=== PATIENT | male | born 1950 | race African-American/Black ===

== ENCOUNTER 2017-12-19 13:43 | Emergency (ER) | payer BC, OTHER ==
[~2017-12-19] VITALS: Ht 182.9 cm; Wt 107.0 kg
--- NOTE | ~2017-12-19 | EKG ---
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
[2017-12-19 15:22] LABS: ABSOLUTE NEUTROPHILS 4.4 thou/uL (1.4-8.2); BASOPHILS 0.8 % (0.0-2.0); EOSINOPHILS 2.1 % (0.0-3.0); HEMOGLOBIN 12.7 gm/dL (14.0-18.0); LYMPHOCYTES 23.8 % (24.0-44.0); MCHC 33.4 g/dL (28.0-37.0); MCV 83.9 fL (80.0-100.0); MONOCYTES 8.9 % (1.0-8.0); PLATELET COUNT 140 thou/uL (150-400); POLYS 64.4 % (36.0-66.0); RBC 4.53 mil/uL (4.50-6.00); RDW 12.7 % (10.5-14.5); WBC 6.9 thou/uL (4.0-11.0)
[2017-12-19 15:25] LABS: ANION GAP 5 mmol/L (7-16); BUN 15 mg/dL (7-18); CALCIUM 9.6 mg/dL (8.5-10.1); CHLORIDE 102 mmol/L (98-107); CO2 32 mmol/L (21-32); CREATININE 1.5 mg/dL (0.7-1.3); GLUCOSE 109 mg/dL (74-106); POTASSIUM 3.8 mmol/L (3.5-5.1); SODIUM 139 mmol/L (136-145)
[2017-12-19 15:33] LABS: TROPONIN-I <0.06 ng/mL (<0.06)
[2017-12-19] MEDS ORDERED: DOXAZOSIN MESYLA8 MG PO (16:27)
[2017-12-19] MEDS ORDERED: COZAAR 25 MG TA25 M1 PO (16:27)
[2017-12-19] MEDS ORDERED: HYDROCODONE-ACE15 ML PO (16:28)
[2017-12-19 19:20] VITALS: BP 159/113
== END 2017-12-19 19:21 | disposition home or self-care (01) ==
LOC: ER 13:43
PROVIDERS: Emergency Medicine
DX: I10 Essential (primary) hypertension (principal); R07.89 Other chest pain; I48.91 Unspecified atrial fibrillation; Z88.0 Allergy status to penicillin

== ENCOUNTER 2018-01-09 21:08 | Inpatient (IN) | payer BC, OTHER ==
[~2018-01-09] VITALS: Ht 236 cm; Wt 107.0 kg
--- NOTE | ~2018-01-09 | HC ---
[facility] [place] [address] CONSULTATION Name: KIEL LOPEZ Room #: 205-[facility] IN M.R.#: [id number] Admission: 01/10/18 Attend Phys: Giovany Nowak MD Discharge: Date of : 50 Report #: [id number] THIS REPORT FOR: //name// CC: Giovany Smith DATE OF SERVICE: 01/10/2018 INDICATION: Chest pains. HISTORY OF PRESENT ILLNESS: This is a 67-year-old gentleman presenting with an episode of chest pain. Last evening, he developed substernal chest pains, nonradiating. He had just eaten dinner earlier. He felt somewhat dizzy and checked his blood pressure and found it to be elevated. He denies any shortness of breath or diaphoresis. He came to the ER for an evaluation. His symptoms resolved after being treated with sublingual nitroglycerin. He was also noted to be hypertensive and he was admitted for further evaluation. He denies any history of fever, cough, PND or orthopnea. PAST MEDICAL HISTORY: History of hypertension, hemophilia A, SVT followed by Dr. Smith and Dr. Bob over at [facility] ?history of AFib. ALLERGIES: TO PENICILLIN. MEDICATIONS AT HOME: Include losartan 100 mg daily, doxazosin 12 mg and hydrocodone. SOCIAL HISTORY: Denies tobacco use. FAMILY HISTORY: Negative for premature CAD. REVIEW OF SYSTEMS: A full 10-point review of systems is performed. Only the pertinent positives and negatives are described in the HPI. PHYSICAL EXAMINATION: VITAL SIGNS: Blood pressure is 143/89, heart rate is 70 beats per minute. GENERAL APPEARANCE: Well-developed, well-nourished male in no acute respiratory distress. HEENT: Normocephalic. Sclerae are anicteric. ENT: Oral mucosa moist. NECK: Supple. LUNGS: Clear to auscultation. CARDIAC: Regular rate and rhythm, S1, S2 positive. ABDOMEN: Soft, nontender. EXTREMITIES: No joint deformities. No edema. NEUROLOGIC: Alert and oriented x 3 [facility] [address] [place] [address] CONSULTATION Name: KIEL LOPEZ Room #: 205-[facility] IN M.R.#: [id number] Admission: 01/10/18 Attend Phys: Giovany Nowak MD Discharge: Date of : 50 Report #: [id number] ECG reveals sinus rhythm, no acute ST segment changes. LABORATORY VALUES: Troponin is negative x 2. ASSESSMENT AND PLAN: 1. Chest pain syndrome, the differential diagnosis includes gastroesophageal reflux disease, ischemia, musculoskeletal. He was in the ER 2 weeks ago with similar complaints. He has not had a recent stress test. The plan is to proceed with a nuclear stress test. Continue with blood pressure management. 2. Hypertensive urgency, the blood pressure is improved. Continue with his medications. May need the addition of an additional medication. 3. Hemophilia A, stable. The patient reports that it is only a problem with deep wounds. Check hemoglobin 4. History of supraventricular tachycardia, continue with telemetry. <ELECTRONICALLY SIGNED> By: Shane Moreno MD 01/11/18 0812 1026 1522 Shane Moreno MD /nt
--- NOTE | ~2018-01-09 | 2DMMODE ---
[facility] [address] [place] [address] 2 D/M-MODE ECHOCARDIOGRAM Name: KIEL LOPEZ Room #: 205-[facility] IN ..#: [id number] Admission: 01/10/18 Attend Phys: Giovany Nowak MD Discharge: Date of : 50 Date of Service: 01/10/18 1010 Report #: [id number] THIS REPORT FOR: //name// APPROVED REPORT Study performed: 01/10/2018 08:50:42 EXAM: Comprehensive 2D, Doppler, and color-flow Echocardiogram Patient Location: Bedside Room #: 205 Status: routine BSA: 2.29 HR: 76 bpm BP: 143/89 mmHg Other Information Study Quality: Adequate Indications Chest Pressure Hypertension/HDD Hx afib 2D Dimensions RVDd: 46.22 mm IVSd: 13.27 (7-11mm) LVOT Diam: 20.44 (18-24mm) LVDd: 43.42 mm PWd: 13.48 (7-11mm) Ascending Ao: 27.03 (22-36mm) LVDs: 26.75 (25-40mm) Aortic Root: 27.35 mm IVC: 24.00 mm Volumes Left Atrial Volume (Systole) Single Plane 4CH: 67.69 mL Single Plane 2CH: 46.17 mL LA ESV Index: 29.00 mL/m2 Aortic Valve AoV Peak Rambo.: 1.26 m/s AO Peak Gr.: 6.39 mmHg LVOT Max P.71 mmHg LVOT Max V: 0.96 m/s HEATHER Vmax: 2.50 cm2 Mitral Valve E/A Ratio: 1.1 MV Decel. Time: 167.31 ms [facility] [place] [address] 2 D/M-MODE ECHOCARDIOGRAM Name: JOHNKIEL Andrew Room #: [address] [place] [address] IN [facility].#: [id number] Admission: 01/10/18 Attend Phys: Giovany Nowak MD Discharge: Date of : 50 Date of Service: 01/10/18 1010 Report #: [id number] E Max Rambo.: 0.72 m/s MV A Rambo.: 0.67 m/s MV PHT: 48.52 ms IVRT: 89.97 ms Pulmonary Valve PV Peak Rambo.: 1.22 m/s PV Peak Gr.: 5.95 mmHg Pulmonary Vein P Vein S: 0.38 m/s P Vein A: 0.23 m/s P Vein D: 0.27 m/s P Vein A Dur.: 96.9 msec P Vein S/D Ratio: 1.41 Tricuspid Valve TR Peak Rambo.: 2.43 m/s RAP Estimate: 10.00 mmHg TR Peak Gr.: 23.58 mmHg PA Pressure: 34.00 mmHg Left Ventricle The left ventricle is normal size. Mild concentric left ventricular hypertrophy. The left ventricular systolic function is normal. The left ventricular ejection fraction is within the normal range. LVEF is 60-65%. Transmitral Doppler flow pattern suggests pseudonormalization. Right Ventricle The right ventricle is normal size. The right ventricular systolic function is normal. Atria The left atrium size is normal. The right atrium size is normal. Aortic Valve The aortic valve is normal in structure. No aortic regurgitation is present. There is no aortic valvular stenosis. Mitral Valve The mitral valve is normal in structure. Trace mitral regurgitation. No evidence of mitral valve stenosis. Tricuspid Valve The tricuspid valve is normal in structure. Mild tricuspid regurgitation. PAP is estimated at 34 mmHg. Pulmonic Valve [place] [id number] 2 D/M-MODE ECHOCARDIOGRAM Name: JOHNKIEL Andrew Room #: 205-P [facility] IN M.R.#: [id number] Admission: 01/10/18 Attend Phys: Giovany Nowak MD Discharge: Date of : 50 Date of Service: 01/10/18 1010 Report #: [id number] The pulmonary valve is normal in structure. Mild pulmonic regurgitation. Great Vessels The aortic root is normal in size. IVC is dilated and collapses >50% with inspiration. Pericardium There is no pericardial effusion. <Conclusion> The left ventricle is normal size. Mild concentric left ventricular hypertrophy. The left ventricular systolic function is normal. Transmitral Doppler flow pattern suggests pseudonormalization. The right ventricle is normal size. The left atrium size is normal. The aortic valve is normal in structure. Trace mitral regurgitation. Mild tricuspid regurgitation. PAP is estimated at 34 mmHg. <ELECTRONICALLY SIGNED> By: Shane Moreno MD 01/10/18 1010 1010 1010 Shane Moreno MD /INF
--- NOTE | ~2018-01-09 | EKG ---
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
[~2018-01-09 21:08] MED LIST: COZAAR 25 MG TA25 M1 PO; DOXAZOSIN MESYLA8 MG PO; HYDROCODONE-ACE15 ML PO
[2018-01-09 21:09] VITALS: BP 202/113
[2018-01-09 21:53] LABS: ABSOLUTE NEUTROPHILS 3.2 thou/uL (1.4-8.2); BASOPHILS 1.3 % (0.0-2.0); EOSINOPHILS 2.4 % (0.0-3.0); HEMATOCRIT 34.2 % (42.0-52.0); HEMOGLOBIN 11.7 gm/dL (14.0-18.0); LYMPHOCYTES 34.6 % (24.0-44.0); MCH 28.3 pg (26.0-34.0); MCHC 34.2 g/dL (28.0-37.0); MCV 82.7 fL (80.0-100.0); MONOCYTES 8.1 % (1.0-8.0); PLATELET COUNT 127 thou/uL (150-400); POLYS 53.6 % (36.0-66.0); RBC 4.14 mil/uL (4.50-6.00); RDW 13.2 % (10.5-14.5)
[2018-01-09 21:59] LABS: ANION GAP 8 mmol/L (7-16); BUN 16 mg/dL (7-18); CALCIUM 8.5 mg/dL (8.5-10.1); CHLORIDE 104 mmol/L (98-107); CO2 30 mmol/L (21-32); CREATININE 1.4 mg/dL (0.7-1.3); GLUCOSE 123 mg/dL (74-106); POTASSIUM 3.7 mmol/L (3.5-5.1); SODIUM 142 mmol/L (136-145)
[2018-01-09 22:07] LABS: TROPONIN-I <0.06 ng/mL (<0.06)
[2018-01-10] VITALS (14 sets, daily range): BP systolic 138–169; BP diastolic 70–107
[2018-01-10] MEDS ORDERED: NORVASC5 MG PO (00:14)
[2018-01-10] MEDS ORDERED: COZAAR 25 MG TA25 M1 PO (02:16)
[2018-01-10 03:46] LABS: CHOLESTEROL 133 mg/dL (<200); HDL CHOLESTEROL 50 mg/dL (>40); LDL CHOLESTEROL 66 mg/dL (<100); TC:HDL 2.7 Ratio (Not establshd); TRIGLYCERIDE 86 mg/dL (<150); VLDL 17 mg/dL (<40)
[2018-01-11 02:35] LABS: CALCIUM 8.7 mg/dL (8.5-10.1); CREATININE 1.3 mg/dL (0.7-1.3); POTASSIUM 3.9 mmol/L (3.5-5.1)
[2018-01-11 04:00] VITALS: BP 166/80
[2018-01-11 08:10] VITALS: BP 145/97
[2018-01-11 11:00] VITALS: BP 117/68
[2018-01-11 14:36] VITALS: BP 121/65
[2018-01-11 19:21] VITALS: BP 128/81
[2018-01-12 03:53] VITALS: BP 142/95
[2018-01-12 04:28] LABS: CALCIUM 8.7 mg/dL (8.5-10.1); CREATININE 1.6 mg/dL (0.7-1.3); MAGNESIUM 1.9 mg/dL (1.8-2.4); POTASSIUM 4.4 mmol/L (3.5-5.1)
[2018-01-12 07:02] VITALS: BP 155/104
[2018-01-12 09:15] VITALS: BP 160/104
[2018-01-12 10:52] LABS: FOLIC ACID 19.3 ng/mL (8.6-58.9)
[2018-01-12 12:09] VITALS: BP 122/78; BP 124/80; BP 144/87
[2018-01-12 15:36] VITALS: BP 135/63
[2018-01-12 20:03] VITALS: BP 121/62
[2018-01-12 23:07] LABS: GLYCOHEMOGLOBIN (HGB A1C) 4.9 % (4.8-5.6)
[2018-01-13 04:03] LABS: ABSOLUTE NEUTROPHILS 3.9 thou/uL (1.4-8.2); EOSINOPHILS 2.1 % (0.0-3.0); HEMATOCRIT 34.5 % (42.0-52.0); HEMOGLOBIN 11.6 gm/dL (14.0-18.0); LYMPHOCYTES 27.7 % (24.0-44.0); MCH 28.2 pg (26.0-34.0); MCHC 33.5 g/dL (28.0-37.0); PLATELET COUNT 123 thou/uL (150-400); POLYS 59.2 % (36.0-66.0); RBC 4.11 mil/uL (4.50-6.00); RDW 13.3 % (10.5-14.5); WBC 6.7 thou/uL (4.0-11.0)
[2018-01-13 04:06] LABS: CALCIUM 8.5 mg/dL (8.5-10.1); CREATININE 1.5 mg/dL (0.7-1.3)
[2018-01-13 04:41] VITALS: BP 151/95
[2018-01-13 08:20] VITALS: BP 158/95
[2018-01-13] MEDS ORDERED: CARVEDILOL12.5 MG PO (11:29)
[2018-01-13] MEDS ORDERED: PAXIL 20 MG TAB20 M1 PO (11:29)
[2018-01-13 14:47] VITALS: BP 160/91
[2018-01-13 15:01] VITALS: BP 160/91
== END 2018-01-13 16:10 | disposition home health service (06) | DRG 304 ==
LOC: ER 21:08 → 2N 01-10 00:41 → EROBS 01-10 00:41 → 2N 01-10 01:23
PROVIDERS: Emergency Medicine; Hospitalist; Internal Medicine Cardiovascular Disease; Nurse Practitioner Acute Care
DX: I16.0 Hypertensive urgency (principal); D66 Hereditary factor VIII deficiency; R07.89 Other chest pain; I48.91 Unspecified atrial fibrillation; F41.1 Generalized anxiety disorder; I10 Essential (primary) hypertension; Z82.49 Family history of ischemic heart disease and other diseases of the circulatory system; Z98.41 Cataract extraction status, right eye; Z98.42 Cataract extraction status, left eye; Z88.0 Allergy status to penicillin; Z88.8 Allergy status to other drugs, medicaments and biological substances
CPT/HCPCS: 10081

== ENCOUNTER 2019-07-04 06:13 | Emergency (ER) | payer BC, OTHER ==
[~2019-07-04] VITALS: Ht 182.9 cm; Wt 105.2 kg
[~2019-07-04 06:13] MED LIST changes: +CARVEDILOL12.5 MG PO; +NORVASC5 MG PO; +PAXIL 20 MG TAB20 M1 PO
[2019-07-04] MEDS ORDERED: BYSTOLIC10 MG PO (06:29)
[2019-07-04 06:49] LABS: BASOPHILS 0.8 % (0.0-2.0); EOSINOPHILS 1.3 % (0.0-3.0); HEMATOCRIT 37.2 % (42.0-52.0); HEMOGLOBIN 12.1 gm/dL (14.0-18.0); MCH 28.3 pg (26.0-34.0); MCHC 32.7 g/dL (28.0-37.0); MCV 86.7 fL (80.0-100.0); MONOCYTES 10.2 % (1.0-8.0); PLATELET COUNT 119 thou/uL (150-400); POLYS 53.7 % (36.0-66.0); RBC 4.28 mil/uL (4.50-6.00); RDW 12.9 % (10.5-14.5); WBC 5.5 thou/uL (4.0-11.0)
[2019-07-04 06:53] LABS: ANION GAP 10 mmol/L (7-16); BUN 20 mg/dL (7-18); CALCIUM 9.1 mg/dL (8.5-10.1); CHLORIDE 105 mmol/L (98-107); CO2 28 mmol/L (21-32); CREATININE 1.7 mg/dL (0.7-1.3); GLUCOSE 127 mg/dL (74-106); POTASSIUM 3.2 mmol/L (3.5-5.1); SODIUM 143 mmol/L (136-145)
[2019-07-04 07:01] LABS: TROPONIN-I <0.06 ng/mL (<0.06)
[2019-07-04 08:58] VITALS: BP 112/70
--- NOTE | 2019-07-04 11:39 | EKG ---
[facility] [place] [address] ELECTROCARDIOGRAM REPORT Name: KIEL LOPEZ Room #: [facility]#: [id number] Admission: 07/04/19 Attend Phys: Discharge: 07/04/19 Date of : 50 Report #: [id number] THIS REPORT FOR: cc: Hudson Smith Steven F. DO Couchonnal, Luis F. MD ~ THIS REPORT FOR: //name// [facility] ED Test Date: 2019-07-04 Test Time: 06:21:34 Pat Name: KIEL LOPEZ Department: Room: Gender: Supervisor Forming Department: DANIELA : 1950 Requested By: Swathi Mckeon Order Number: [id number] MD: Teofilo Gonzalez Measurements Intervals [place] Rate: 154 P: [place]: QRS: 75 QRSD: 101 T: 2 QT: 327 QTc: 524 Interpretive Statements Atrial fibrillation with rapid V-rate Baseline wander in lead(s) V2 Compared to ECG 01/09/2018 21:08:01 Electronically Signed On 07-04-2019 11:37:45 CDT by Teofilo Gonzalez [email or web address] <ELECTRONICALLY SIGNED> By: Teofilo Gonzalez MD 07/04/19 1137 0 Teofilo Gonzalez MD /EPI
== END 2019-07-04 08:58 | disposition home or self-care (01) ==
LOC: ER 06:13
PROVIDERS: Emergency Medicine
DX: I48.20 Chronic atrial fibrillation, unspecified (principal); R07.89 Other chest pain; R51 Headache; I10 Essential (primary) hypertension; Z79.899 Other long term (current) drug therapy; Z88.8 Allergy status to other drugs, medicaments and biological substances; Z88.0 Allergy status to penicillin; Z87.891 Personal history of nicotine dependence

== ENCOUNTER 2019-07-30 18:24 | Emergency (ER) | payer BC, OTHER ==
[~2019-07-30] VITALS: Ht 182.9 cm; Wt 103.4 kg
[~2019-07-30 18:24] MED LIST changes: +BYSTOLIC10 MG PO
[2019-07-30 18:52] LABS: ABSOLUTE NEUTROPHILS 3.3 thou/uL (1.4-8.2); BASOPHILS 1.4 % (0.0-2.0); EOSINOPHILS 0.6 % (0.0-3.0); HEMATOCRIT 38.3 % (42.0-52.0); HEMOGLOBIN 12.6 gm/dL (14.0-18.0); LYMPHOCYTES 32.8 % (24.0-44.0); MCH 28.4 pg (26.0-34.0); MCHC 32.8 g/dL (28.0-37.0); MCV 86.6 fL (80.0-100.0); MONOCYTES 9.5 % (1.0-8.0); PLATELET COUNT 125 thou/uL (150-400); POLYS 55.7 % (36.0-66.0); RBC 4.42 mil/uL (4.50-6.00); RDW 13.3 % (10.5-14.5)
[2019-07-30 18:59] LABS: ANION GAP 6 mmol/L (7-16); BUN 16 mg/dL (7-18); CALCIUM 8.8 mg/dL (8.5-10.1); CHLORIDE 104 mmol/L (98-107); CO2 29 mmol/L (21-32); CREATININE 1.4 mg/dL (0.7-1.3); GLUCOSE 101 mg/dL (74-106); POTASSIUM 3.7 mmol/L (3.5-5.1); SODIUM 139 mmol/L (136-145)
[2019-07-30] MEDS ORDERED: DOXAZOSIN MESYLA4 MG PO (19:00)
[2019-07-30] MEDS ORDERED: CARDURA8 MG PO (19:01)
[2019-07-30] MEDS ORDERED: NORCO 10-325 T1 EACH PO (19:01)
[2019-07-30 19:08] LABS: TROPONIN-I <0.06 ng/mL (<0.06)
[2019-07-30 20:36] VITALS: BP 154/89
--- NOTE | 2019-07-31 11:00 | EKG ---
[facility] [place] [address] ELECTROCARDIOGRAM REPORT Name: KIEL LOPEZ Room #: [facility]P [facility]#: [id number] Admission: 07/30/19 Attend Phys: Discharge: 07/30/19 Date of : 50 Report #: [id number] THIS REPORT FOR: cc: Hudson Smith,Shane Baird MD ~ THIS REPORT FOR: //name// [facility] ED Test Date: 2019-07-30 Test Time: 18:29:40 Pat Name: KIEL LOPEZ Department: Room: Gender: Ink Jet Operator: ADONIS : 1950 Requested By: Octavio Palomo Order Number: [id number] MD: Shane Moreno Measurements Intervals [place] Rate: 61 P: 53 CT: 149 QRS: 50 QRSD: 101 T: 16 QT: 438 QTc: 442 Interpretive Statements Sinus rhythm Abnormal R-wave progression, early transition Nonspecific ST segment abnormalities Compared to ECG 07/04/2019 06:21:34 ST (T wave) deviation now present Atrial fibrillation no longer present Electronically Signed On 07-31-2019 10:58:31 CDT by Shane Moreno [email or web address] <ELECTRONICALLY SIGNED> By: Shane Moreno MD 07/31/19 1058 1829 1829 Shane Moreno MD /EPI
== END 2019-07-30 20:40 | disposition home or self-care (01) ==
LOC: ER 18:24
PROVIDERS: Emergency Medicine
DX: R07.89 Other chest pain (principal); I10 Essential (primary) hypertension; I48.91 Unspecified atrial fibrillation; Z96.7 Presence of other bone and tendon implants; Z79.899 Other long term (current) drug therapy; Z88.8 Allergy status to other drugs, medicaments and biological substances; Z88.0 Allergy status to penicillin; Z87.891 Personal history of nicotine dependence

== ENCOUNTER → 2019-09-23 | Outpatient (CLI) | payer BC, OTHER ==
[~2019-09-23] MED LIST changes: +CARDURA8 MG PO; +DOXAZOSIN MESYLA4 MG PO; +NORCO 10-325 T1 EACH PO
== END ==
LOC: ULTRA 08:24
PROVIDERS: ATTEND Neuromusculoskeletal Medicine & OMM
DX: N28.1 Cyst of kidney, acquired (principal)

== ENCOUNTER 2020-06-08 17:17 | Observation (INO) | payer BC, OTHER ==
[~2020-06-08] VITALS: Ht 152.4 cm; Wt 97.1 kg
[2020-06-08 17:34] VITALS: BP 178/97
[2020-06-08 17:42] LABS: ABSOLUTE NEUTROPHILS 4.5 thou/uL (1.4-8.2); BASOPHILS 0.9 % (0.0-2.0); EOSINOPHILS 0.6 % (0.0-3.0); HEMATOCRIT 36.4 % (42.0-52.0); HEMOGLOBIN 11.7 gm/dL (14.0-18.0); LYMPHOCYTES 24.4 % (24.0-44.0); MCH 27.7 pg (26.0-34.0); MCHC 32.2 g/dL (28.0-37.0); MCV 86.2 fL (80.0-100.0); MONOCYTES 9.2 % (1.0-8.0); PLATELET COUNT 128 thou/uL (150-400); POLYS 64.9 % (36.0-66.0); RBC 4.22 mil/uL (4.50-6.00); RDW 13.3 % (10.5-14.5)
[2020-06-08 17:51] LABS: ANION GAP 10 mmol/L (7-16); BUN 18 mg/dL (7-18); CALCIUM 8.8 mg/dL (8.5-10.1); CHLORIDE 104 mmol/L (98-107); CO2 29 mmol/L (21-32); CREATININE 1.4 mg/dL (0.7-1.3); GLUCOSE 98 mg/dL (74-106); POTASSIUM 3.5 mmol/L (3.5-5.1); SODIUM 143 mmol/L (136-145)
[2020-06-08 18:01] LABS: ALBUMIN 3.9 g/dL (3.4-5.0); SGOT 19 U/L (15-37); SGPT 26 U/L (16-63); TOTAL BILIRUBIN 0.6 mg/dL (0.2-1.0); TOTAL PROTEIN 7.3 g/dL (6.4-8.2); TROPONIN-I <0.06 ng/mL (<0.06)
[2020-06-08 20:06] VITALS: BP 183/96
[2020-06-08 20:19] VITALS: BP 183/96
[2020-06-08 20:30] VITALS: BP 174/92
[2020-06-08 22:45] VITALS: BP 175/99
[2020-06-08 23:38] VITALS: BP 185/105
[2020-06-09 00:05] LABS: CHOLESTEROL 151 mg/dL (<200); HDL CHOLESTEROL 58 mg/dL (>40); LDL CHOLESTEROL 82 mg/dL (<100); TC:HDL 2.6 Ratio (Not establshd); TRIGLYCERIDE 57 mg/dL (<150); VLDL 11 mg/dL (<40)
[2020-06-09 00:06] LABS: SERUM ASSESSMENT Clear
[2020-06-09 04:29] VITALS: BP 152/103
[2020-06-09 06:22] LABS: ANION GAP 8 mmol/L (7-16); BUN 15 mg/dL (7-18); CALCIUM 8.8 mg/dL (8.5-10.1); CHLORIDE 106 mmol/L (98-107); CO2 30 mmol/L (21-32); CREATININE 1.2 mg/dL (0.7-1.3); GLUCOSE 93 mg/dL (74-106); POTASSIUM 3.8 mmol/L (3.5-5.1); SODIUM 144 mmol/L (136-145); TROPONIN-I <0.06 ng/mL (<0.06)
--- NOTE | 2020-06-09 06:57 | NUR ---
PATIENTS CARES WERE ASSUMED AFTER A TRANSFER FROM ED. PATIENT WAS ADMITTED AND PATIENT WAS ASSESSED. MED ORDERS WERE CARRIED OUT. PATIENT B/P WAS HIGH MOST OF THIS SHIFT. ECHO CALLED AT 0700 TO COME GET HIM FOR AN ECHO. PATIENT HAS BEEN NPO SINCE MIDNIGHT. ROUNDS WERE DONE. THE BED IS IN A LOW AND LOCKED POSITION. THE BED ALARM IS ON.
--- NOTE | 2020-06-09 07:07 | EKG ---
[place] [address] [facility] [place] [address] ELECTROCARDIOGRAM REPORT Name: BEE LOPEZAPRYL Morales Room #: 218-P ADM IN M.R.#: [id number] Admission: 06/08/20 Attend Phys: Corina Hernadez Discharge: Date of : 50 Report #: [id number] [facility] ED Test Date: 2020-06-08 Test Time: 17:27:37 Pat Name: KIEL LOPEZ Department: Room: Gender: M Pain Medicine Physician: [facility] : 1950 Requested By: William Harrison Order Number: [id number] MD: Kulwinder Andrews Measurements Intervals [place] Rate: 66 P: 60 [place]: 158 QRS: 64 QRSD: 101 T: 21 QT: 432 QTc: 453 Interpretive Statements Sinus rhythm Probable left atrial enlargement RSR' in V1 or V2, right VCD or RVH Compared to ECG 07/30/2019 18:29:40 Right ventricular hypertrophy now present RSR' in V1 or V2 now present Electronically Signed On 06-09-2020 7:07:05 CDT by Kulwinder Anrdews [email or web address] <ELECTRONICALLY SIGNED> By: Kulwinder Andrews MD, [facility] 06/09/20 0707 1727 26 Kulwinder Andrews MD, [facility] /EPI
--- NOTE | 2020-06-09 07:53 | 2DMMODE ---
[address] [address] 2 D/M-MODE ECHOCARDIOGRAM Name: KIEL LOPEZ Room #: 218-P [facility] IN M.R.#: [id number] Admission: 06/08/20 Attend Phys: Corina Hernadez Discharge: Date of : 50 Report #: [id number] THIS REPORT FOR: cc: Hudson Smith,Kulwinder Hawkins MD [facility] ~ APPROVED REPORT Study performed: 06/09/2020 07:16:01 EXAM: Comprehensive 2D, Doppler, and color-flow Echocardiogram Patient Location: In-patient/Echo lab Room #: 218 Status: routine BSA: 2.17 HR: 64 bpm BP: 152/103 mmHg Rhythm: NSR Other Information Study Quality: Adequate Indications Chest Pain Hypertension/HDD Hx: SVT, Afib, HTN. 2D Dimensions RVDd: 35.27 mm IVSd: 13.00 (7-11mm) LVOT Diam: 21.00 (18-24mm) LVDd: 45.00 mm PWd: 13.00 (7-11mm) Ascending Ao: 31.00 (22-36mm) LVDs: 29.00 (25-40mm) Left Atrium: 38.00 (27-40mm) Aortic Root: 29.00 mm Volumes Left Atrial Volume (Systole) Single Plane 4CH: 51.85 mL Single Plane 2CH: 62.01 mL LA ESV Index: 28.00 mL/m2 Aortic Valve AoV Peak Rambo.: 1.11 m/s AO Peak Gr.: 4.97 mmHg LVOT Max P.[address] [facility] [address] [place] [address] 2 D/M-MODE ECHOCARDIOGRAM Name: KIEL LOPEZ Room #: 218-P [facility] IN [facility]#: [id number] Admission: 06/08/20 Attend Phys: Corina Youngblood Discharge: Date of : 50 Report #: [id number] LVOT Max V: 0.88 m/s HEATHER Vmax: 2.84 cm2 Mitral Valve E/A Ratio: 0.9 MV Decel. Time: 224.29 ms MV E Max Rambo.: 0.53 m/s MV A Rambo.: 0.61 m/s MV PHT: 65.04 ms IVRT: 58.82 ms Pulmonary Valve PV Peak Rambo.: 0.93 m/s PV Peak Gr.: 3.44 mmHg Pulmonary Vein P Vein S: 0.65 m/s P Vein A: 0.29 m/s P Vein D: 0.29 m/s P Vein A Dur.: 79.6 msec P Vein S/D Ratio: 2.24 Tricuspid Valve TR Peak Rambo.: 2.46 m/s RAP Estimate: 5.00 mmHg TR Peak Gr.: 24.28 mmHg PA Pressure: 29.00 mmHg Left Ventricle The left ventricle is normal size. There is normal LV segmental wall motion. Mild concentric left ventricular hypertrophy. Left ventricular systolic function is normal. LVEF is 60-65%. Mild diastolic dysfunction is present. Right Ventricle The right ventricle is normal size. The right ventricular systolic function is normal. Atria The left atrium size is normal. The right atrium size is normal. Aortic Valve The aortic valve is normal in structure. No aortic regurgitation is present. There is no aortic valvular stenosis. Mitral Valve The mitral valve is normal in structure. Trace mitral regurgitation. No evidence of mitral valve stenosis. [facility] [address] [place] [address] 2 D/M-MODE ECHOCARDIOGRAM Name: KIEL LOPEZ Andrew Room #: 218-P [facility] IN ..#: [id number] Admission: 06/08/20 Attend Phys: Corina Youngblood Discharge: Date of : 50 Report #: [id number] Tricuspid Valve The tricuspid valve is normal in structure. Mild tricuspid regurgitation. Estimated PAP is 30mmHg. Pulmonic Valve The pulmonary valve is normal in structure. Mild pulmonic regurgitation. Great Vessels The aortic root is normal in size. The ascending aorta is normal in size. IVC is normal in size and collapses >50% with inspiration. Pericardium There is no pericardial effusion. <Conclusion> Normal left ventricular size with mild concentric hypertrophy Ejection fraction 65% Grade 1 diastolic dysfunction Normal right ventricular size/function Normal atrial size Color-flow Doppler study was performed of the aortic/mitral/tricuspid/pulmonary valve Normal aortic/mitral valve structure and function Mild tricuspid valve insufficiency Pulmonary systolic pressure estimated at 30 mmHg Normal aortic root size Normal IVC size and response to respiration No pericardial effusion <ELECTRONICALLY SIGNED> By: Kulwinder Andrews MD, FACC 06/09/20 0753 075 075 Kulwinder Andrews MD, FACC /INF
--- NOTE | 2020-06-09 09:24 | EKG ---
[place] [address] [facility] [place] [address] ELECTROCARDIOGRAM REPORT Name: BEE LOPEZENCE Andrew Room #: 218-P ADM IN M.R.#: [id number] Admission: 06/08/20 Attend Phys: Corina Hernadez Discharge: Date of : 50 Report #: [id number] [facility] Test Date: 2020-06-09 Test Time: 08:56:51 Pat Name: KIEL LOPEZ Department: Room: 218 P Gender: M Electrical Worker: CLEMENT : 1950 Requested By: Peggy Knight Order Number: [id number] MD: Hao Bach Measurements Intervals [place] Rate: 70 P: 249 VT: 89 QRS: 58 QRSD: 95 T: 6 QT: 419 QTc: 453 Interpretive Statements Ectopic atrial rhythm Short VT interval RSR' in V1 or V2, right VCD Minimal ST elevation, lateral leads Compared to ECG 06/08/2020 17:27:37 Ectopic atrial rhythm now present Electronically Signed On 06-09-2020 9:24:01 CDT by Hao Bach [email or web address] <ELECTRONICALLY SIGNED> By: Hao Bach MD, [facility] 06/09/20923 0856 Hao Bach MD, [facility] /EPI
[2020-06-09] MEDS ORDERED: PROTONIX 20 MG20 MG PO (09:41)
[2020-06-09] MEDS ORDERED: BENICAR40 MG PO (09:41)
[2020-06-09] MEDS ORDERED: BYSTOLIC20 MG PO (09:41)
[2020-06-09 12:03] VITALS: BP 152/103
--- NOTE | 2020-06-09 13:53 | NUR ---
ASSESSMENT CHARTED. PT ALERT AND ORIENTED. HAD HIGH BP THIS AM. SCHEDULED BP MEDS GIVEN. ORDERS GIVEN TO DISCHARGE PT TO HOME. DISCHARGE INSTRUCTIONS GIVEN TO PT. PT VERBERLISED UNDERSTANDING.
== END 2020-06-09 13:55 | disposition home or self-care (01) ==
LOC: ER 17:17 → 2N 20:21
PROVIDERS: Emergency Medicine; Nurse Practitioner Family; ADMIT Hospitalist; ATTEND Hospitalist
DX: R10.13 Epigastric pain (principal); R07.89 Other chest pain; I10 Essential (primary) hypertension; I48.20 Chronic atrial fibrillation, unspecified; D66 Hereditary factor VIII deficiency; I16.0 Hypertensive urgency; Z87.891 Personal history of nicotine dependence; Z79.899 Other long term (current) drug therapy; S82.892A Other fracture of left lower leg, initial encounter for closed fracture; X58.XXXA Exposure to other specified factors, initial encounter; Y93.89 Activity, other specified; Y92.89 Other specified places as the place of occurrence of the external cause
CPT/HCPCS: 10081

== ENCOUNTER 2020-06-15 22:23 | Emergency (ER) | payer BC, OTHER ==
[~2020-06-15] VITALS: Ht 182.9 cm; Wt 97.5 kg
[~2020-06-15 22:23] MED LIST changes: +BENICAR40 MG PO; +BYSTOLIC20 MG PO; +PROTONIX 20 MG20 MG PO
[2020-06-15 23:25] LABS: ABSOLUTE NEUTROPHILS 3.3 thou/uL (1.4-8.2); EOSINOPHILS 0.8 % (0.0-3.0); HEMOGLOBIN 11.2 gm/dL (14.0-18.0); LYMPHOCYTES 30.1 % (24.0-44.0); MCH 28.6 pg (26.0-34.0); MCHC 33.1 g/dL (28.0-37.0); MCV 86.5 fL (80.0-100.0); MONOCYTES 10.6 % (1.0-8.0); PLATELET COUNT 121 thou/uL (150-400); POLYS 57.5 % (36.0-66.0); RBC 3.93 mil/uL (4.50-6.00); RDW 13.3 % (10.5-14.5); WBC 5.7 thou/uL (4.0-11.0)
[2020-06-15 23:45] LABS: ANION GAP 6 mmol/L (7-16); BUN 16 mg/dL (7-18); CALCIUM 8.6 mg/dL (8.5-10.1); CHLORIDE 106 mmol/L (98-107); CO2 29 mmol/L (21-32); CREATININE 1.4 mg/dL (0.7-1.3); GLUCOSE 96 mg/dL (74-106); POTASSIUM 3.8 mmol/L (3.5-5.1); SODIUM 141 mmol/L (136-145)
[2020-06-15 23:55] LABS: ALBUMIN 3.9 g/dL (3.4-5.0); SGOT 20 U/L (15-37); SGPT 21 U/L (30-65); TOTAL BILIRUBIN 0.6 mg/dL (0.2-1.0); TOTAL PROTEIN 7.2 g/dL (6.4-8.2); TROPONIN-I <0.06 ng/mL (<0.06)
[2020-06-16 01:00] VITALS: BP 170/77
--- NOTE | 2020-06-16 06:44 | EKG ---
[place] [address] [employer] [place] [address] ELECTROCARDIOGRAM REPORT Name: KIEL LOPEZ Room #: [facility]#: [id number] Admission: 06/15/20 Attend Phys: Discharge: 06/16/20 Date of : 50 Report #: [id number] [facility] ED Test Date: 2020-06-15 Test Time: 23:04:17 Pat Name: KIEL LOPEZ Department: Room: Gender: M Natural Resource Technician: : 1950 Requested By: William Harrison Order Number: [id number] MD: Kulwinder Andrews Measurements Intervals [place] Rate: 59 P: 50 OR: 157 QRS: 50 QRSD: 100 T: 16 QT: 439 QTc: 435 Interpretive Statements Sinus rhythm Probable left atrial enlargement RSR' in V1 or V2, right VCD or RVH Minimal ST elevation, anterior leads Compared to ECG 06/09/2020 08:56:51 Right ventricular hypertrophy now present Ectopic atrial rhythm no longer present Short OR interval no longer present ST (T wave) deviation still present Electronically Signed On 06-16-2020 6:44:03 CDT by Kulwinder Andrews [email or web address] <ELECTRONICALLY SIGNED> By: Kulwinder Andrews MD, [facility] 06/16/20 0644 2304 2304 Kulwinder Andrews MD, [facility] /EPI
== END 2020-06-16 01:00 | disposition home or self-care (01) ==
LOC: ER 22:23
PROVIDERS: Emergency Medicine
DX: R07.9 Chest pain, unspecified (principal); I10 Essential (primary) hypertension; I48.91 Unspecified atrial fibrillation; Z79.899 Other long term (current) drug therapy; Z87.891 Personal history of nicotine dependence; Z88.0 Allergy status to penicillin; Z88.8 Allergy status to other drugs, medicaments and biological substances

== ENCOUNTER → 2020-09-22 | Outpatient (CLI) | payer BC | LOC: RAD 14:32 | PROVIDERS: ATTEND Neuromusculoskeletal Medicine & OMM | DX: M47.22 Other spondylosis with radiculopathy, cervical region (principal); M50.11 Cervical disc disorder with radiculopathy, high cervical region; M48.02 Spinal stenosis, cervical region; Z98.1 Arthrodesis status ==

== ENCOUNTER 2021-03-08 02:25 | Inpatient (IN) | payer OTHER, BC ==
[~2021-03-08] VITALS: Ht 180.3 cm; Wt 97.5 kg
[2021-03-08 02:30] VITALS: BP 93/58
[2021-03-08 03:14] LABS: ABSOLUTE NEUTROPHILS 3.4 thou/uL (1.4-8.2); BASOPHILS 1.1 % (0.0-2.0); EOSINOPHILS 1.1 % (0.0-3.0); HEMOGLOBIN 11.4 gm/dL (14.0-18.0); LYMPHOCYTES 34.6 % (24.0-44.0); MCH 27.8 pg (26.0-34.0); MCHC 32.5 g/dL (28.0-37.0); MCV 85.6 fL (80.0-100.0); MONOCYTES 9.2 % (1.0-8.0); PLATELET COUNT 115 thou/uL (150-400); RBC 4.09 mil/uL (4.50-6.00); RDW 13.2 % (10.5-14.5); WBC 6.4 thou/uL (4.0-11.0)
[2021-03-08 03:30] LABS: ANION GAP 9 mmol/L (7-16); BUN 20 mg/dL (7-18); CALCIUM 8.9 mg/dL (8.5-10.1); CHLORIDE 105 mmol/L (98-107); CO2 28 mmol/L (21-32); CREATININE 1.6 mg/dL (0.7-1.3); GLUCOSE 116 mg/dL (74-106); POTASSIUM 3.5 mmol/L (3.5-5.1); SODIUM 142 mmol/L (136-145)
[2021-03-08 03:40] LABS: ALBUMIN 4.1 g/dL (3.4-5.0); SGOT 28 U/L (15-37); SGPT 42 U/L (16-63); TOTAL BILIRUBIN 0.7 mg/dL (0.2-1.0); TOTAL PROTEIN 7.3 g/dL (6.4-8.2)
--- NOTE | 2021-03-08 07:45 | EKG ---
[address] [address] ELECTROCARDIOGRAM REPORT Name: KIEL LOPEZ Room #: 140-5 ADM IN M.R.#: [id number] Admission: 03/08/21 Attend Phys: Wade Brooks MD Discharge: Date of : 50 Report #: [id number] [facility] ED Test Date: 2021-03-08 Test Time: 03:13:08 Pat Name: KIEL LOPEZ Department: Room: [facility] Gender: M Truck Chauffeur: nixon sweeney : 1950 Requested By: Ria Galan Order Number: [id number] MD: Kulwinder Andrews Measurements Intervals [place] Rate: 89 P: PA: QRS: 76 QRSD: 108 T: 0 QT: 390 QTc: 475 Interpretive Statements Atrial fibrillation Ventricular premature complex Abnormal R-wave progression, early transition Compared to ECG 06/15/2020 23:04:17 Ventricular premature complex(es) now present Sinus rhythm no longer present Right ventricular hypertrophy no longer present ST (T wave) deviation no longer present Electronically Signed On 03-08-2021 7:44:54 SLEEPING BAG FILLER by Kulwinder Andrews [email or web address] <ELECTRONICALLY SIGNED> By: Kulwinder Andrews MD, FACC 03/08/21 0744 2 2 Kulwinder Andrews MD, [facility] /EPI
--- NOTE | 2021-03-08 07:45 | EKG ---
[address] [employer] [place] [address] ELECTROCARDIOGRAM REPORT Name: KIEL LOPEZ Room #: 140-5 ADM IN ..#: [id number] Admission: 03/08/21 Attend Phys: Wade Brooks MD Discharge: Date of : 50 Report #: [id number] [facility] ED Test Date: 2021-03-08 Test Time: 05:24:51 Pat Name: KIEL LOPEZ Department: Room: 140 Gender: M Shipwright Supervisor: nixon sweeney : 1950 Requested By: Ria Galan Order Number: [id number] MD: Kulwinder Andrews Measurements Intervals [place] Rate: 72 P: 63 [place]: 158 QRS: 63 QRSD: 102 T: 19 QT: 410 QTc: 449 Interpretive Statements Sinus rhythm Atrial premature complex RSR' in V1 or V2, right VCD or RVH Compared to ECG 03/08/2021 03:13:08 Atrial premature complex(es) now present Right ventricular hypertrophy now present RSR' in V1 or V2 now present Atrial fibrillation no longer present Ventricular premature complex(es) no longer present Electronically Signed On 03-08-2021 7:45:00 PLUGGER WORKER by Kulwinder Andrews [email or web address] <ELECTRONICALLY SIGNED> By: Kulwinder Andrews MD, FACC 03/08/21 0745 3 3 Kulwinder Andrews MD, FAC /EPI
[2021-03-08 08:00] VITALS: BP 148/82
[2021-03-08] MEDS ORDERED: HYDRALAZINE 2525 M1 PO (09:11)
[2021-03-08 09:35] LABS: CHOLESTEROL 151 mg/dL (<200); HDL CHOLESTEROL 61 mg/dL (>40); LDL CHOLESTEROL 59 mg/dL (<100); TC:HDL 2.5 Ratio (Not establshd); TRIGLYCERIDE 157 mg/dL (<150); VLDL 31 mg/dL (<40)
[2021-03-08 12:00] VITALS: BP 169/94
[2021-03-08 16:09] VITALS: BP 154/87
[2021-03-08 18:45] VITALS: BP 186/89
--- NOTE | 2021-03-08 19:36 | NUR ---
PT TOOK HIS OWN DOSE OF OLMESARTAN 40MG. RN TOLD PT TO WAIT UNTIL THIS RN PAGED THE DOCTOR BUT PUT DID NOT WAIT. PT STATES HE WANTS TO TAKE HIS OWN MEDS AND WE CAN DOCUMENT WHAT HE TAKES. LIANE LAUREN MADE AWARE AND WILL PAGE IP DOCTOR.
--- NOTE | 2021-03-08 19:53 | NUR ---
THIS RN SPOKE WITH KOLE HAAS WHO TAKES PT CANNOT TAKE HIS OWN MEDS UNLESS ORDER RECEIVED BY CARDIOLOGY, IN WHICH MEDS WILL NEED TO GO TO PHARMACY TO VERIFY AND GET A LABEL FOR US TO SCAN. PAGE PUT OUT TO CARDIO.
[2021-03-08] MEDS ORDERED: HYDRALAZINE 2525 MG PO ×2 (20:21)
--- NOTE | 2021-03-09 00:53 | NUR ---
PT'S HOME MEDICATIONS WERE SECURED AND PLACED IN A BAG AND GIVEN TO PHARMACY.
[2021-03-09 02:11] VITALS: BP 148/81
[2021-03-09 05:20] VITALS: BP 170/94
[2021-03-09 05:41] LABS: ABSOLUTE NEUTROPHILS 3.1 thou/uL (1.4-8.2); BASOPHILS 1.3 % (0.0-2.0); EOSINOPHILS 0.9 % (0.0-3.0); HEMATOCRIT 33.9 % (42.0-52.0); LYMPHOCYTES 30.1 % (24.0-44.0); MCHC 32.3 g/dL (28.0-37.0); MCV 86.5 fL (80.0-100.0); MONOCYTES 9.5 % (1.0-8.0); PLATELET COUNT 111 thou/uL (150-400); POLYS 58.2 % (36.0-66.0); RBC 3.93 mil/uL (4.50-6.00); RDW 13.4 % (10.5-14.5); WBC 5.4 thou/uL (4.0-11.0)
[2021-03-09 05:57] LABS: CALCIUM 8.7 mg/dL (8.5-10.1); CREATININE 1.1 mg/dL (0.7-1.3); MAGNESIUM 1.6 mg/dL (1.8-2.4); POTASSIUM 3.6 mmol/L (3.5-5.1)
[2021-03-09 08:01] VITALS: BP 169/92
--- NOTE | 2021-03-09 11:09 | EKG ---
[place] [address] [facility] [place] [address] ELECTROCARDIOGRAM REPORT Name: KIEL LOPEZ Room #: 170-7 ADM IN M.R.#: [id number] Admission: 03/08/21 Attend Phys: Wade Brooks MD Discharge: Date of : 50 Report #: [id number] [facility] ED Test Date: 2021-03-08 Test Time: 02:35:23 Pat Name: KIEL LOPEZ Department: Room: 170 Gender: M Specimen Technician: : 1950 Requested By: Ria Galan Order Number: [id number] MD: Hao Bach Measurements Intervals [place] Rate: 165 P: MT: QRS: 83 QRSD: 87 T: -29 QT: 300 QTc: 497 Interpretive Statements Atrial fibrillation with rapid V-rate Ventricular premature complex Borderline right axis deviation Repolarization abnormality, prob rate related Compared to ECG 06/15/2020 23:04:17 Atrial fibrillation has replaced sinus rhythm ST and T wave abnormality is new Electronically Signed On 03-09-2021 11:09:03 BICYCLE RENTAL CLERK by Hao Bach [email or web address] <ELECTRONICALLY SIGNED> By: Hao Bach MD, [facility] 03/09/21 1109 0235 0235 Hao Bach MD, [facility] /EPI
[2021-03-09 12:52] VITALS: BP 172/97
[2021-03-09 15:15] VITALS: BP 174/98
== END 2021-03-09 15:20 | disposition home or self-care (01) | DRG 308 ==
LOC: ER 02:25 → ADMC 04:40 → EROBS 03-09 08:40
PROVIDERS: Emergency Medicine; Nurse Practitioner; ADMIT Internal Medicine; ATTEND Internal Medicine
DX: I48.0 Paroxysmal atrial fibrillation (principal); D66 Hereditary factor VIII deficiency; N17.9 Acute kidney failure, unspecified; G44.89 Other headache syndrome; F12.90 Cannabis use, unspecified, uncomplicated; F17.210 Nicotine dependence, cigarettes, uncomplicated; I12.9 Hypertensive chronic kidney disease with stage 1 through stage 4 chronic kidney disease, or unspecified chronic kidney disease; N18.9 Chronic kidney disease, unspecified; I25.10 Atherosclerotic heart disease of native coronary artery without angina pectoris; Z20.822 Contact with and (suspected) exposure to COVID-19; E83.42 Hypomagnesemia; Z98.49 Cataract extraction status, unspecified eye; Z87.81 Personal history of (healed) traumatic fracture; Z88.0 Allergy status to penicillin; Z88.8 Allergy status to other drugs, medicaments and biological substances; Z71.6 Tobacco abuse counseling; Z71.51 Drug abuse counseling and surveillance of drug abuser
CPT/HCPCS: 10040